=== PATIENT | male | born 1935 | race Caucasian/White ===

== ENCOUNTER → 2024-06-18 | Outpatient (CLI) | payer MEDICARE, SELFPAY ==
--- NOTE | 2024-06-18 15:17 | XR_ITS ---
Examination: PA lateral chest 2 views TECHNIQUE: Upright PA lateral chest 2 views Exam date and time: June 18, 2024 1531 hours INDICATIONS: Chronic coughing beginning 7 months ago. FINDINGS: Moderate hyperexpansion Normal heart size No pneumonia or pulmonary edema Prominent osteopenia IMPRESSION: COPD No pneumonia or pulmonary edema
== END | disposition home or self-care (01) ==
LOC: CDIM 14:56
PROVIDERS: PCP Internal Medicine; Referring Provider Internal Medicine; Visit Provider Internal Medicine
DX: R05.3 Chronic cough (principal); J44.9 Chronic obstructive pulmonary disease, unspecified
CPT/HCPCS: 71046

== ENCOUNTER → 2024-10-01 | Outpatient (CLI) | payer MEDICARE, SELFPAY ==
--- NOTE | 2024-10-01 | XR_ITS ---
Examination: CT chest, without intravenous contrast. Sagittal and coronal 2-D reconstructions. Exam date and time: October 01, 2024 1419 hours INDICATIONS: Coughing beginning April 2024 CTDI:vol (mGy) 8.57 DLP: (mGycm) 371 Technique: Multiple 3.0 mm axial sections of the chest to been obtained. Bone and lung density settings are obtained. Sagittal and coronal 2-D reconstructions have been obtained. Low dose protocols were performed. One or more of the following dose reduction techniques were used; automated exposure control, adjustment of the mA and/or KV according to patient size, use of iterative reconstruction technique. Findings: No thoracic aortic aneurysm dilatation Pulmonary artery segments are not enlarged No paratracheal tracheobronchial or bronchopulmonary adenopathy No pneumonia, pulmonary edema, pleural disease or pulmonary nodules No visualized liver or splenic lesion No pancreatic mass Kidneys partially visualized no hydronephrosis Moderate osteopenia IMPRESSION: No mediastinal lymphadenopathy No pneumonia, pulmonary edema or pleural disease
== END | disposition home or self-care (01) ==
LOC: CCTX 14:47
PROVIDERS: PCP Internal Medicine; Referring Provider Internal Medicine; Visit Provider Internal Medicine
DX: R05.3 Chronic cough (principal)
CPT/HCPCS: 71250